=== PATIENT | male | born 1950 | race Caucasian/White ===

== ENCOUNTER 2016-06-27 12:15 | Emergency (ER) | payer OTHER ==
[~2016-06-27] VITALS: Ht 185.4 cm; Wt 102.5 kg
[~2016-06-27 12:15] MED LIST: ASPI81TA13; ATOR20TA50 PO; CARV3.1240; DILT180C53
[2016-06-27 13:11] LABS: Basophils # (auto) 0.1 uL; Basophils % (auto) 0.9 % (0.0-2.0); DEFINITIVE VIEW TRANSMISSION; Eosinophils # (auto) 0.1 uL; Eosinophils % (auto) 1.1 % (0.0-7.0); Hemoglobin 15.6 g/dL (13.5-17.5); Lymphocytes # (auto) 2.2 uL; Lymphocytes % (auto) 28.1 % (10.0-50.0); Mean Corpuscular Hemoglobin 26.6 pg (28.0-32.0); Mean Corpuscular Hgb Conc. 33.2 g/dL (32.0-36.0); Mean Corpuscular Volume 80.3 fL (80.0-100.0); Mean Platelet Volume 9.1 fL (7.4-10.4); Monocytes # (auto) 0.8 uL; Monocytes % (auto) 9.8 % (0.0-12.0); Neutrophils # (auto) 4.7 uL; Neutrophils % (auto) 60.1 % (37.0-80.0); Platelet Count (auto) 296 10^3/uL (140-450); Red Cell Distribution Width 13.6 % (11.6-16.0); White Blood Cell 7.8 10^3/uL (4.4-10.8)
[2016-06-27 13:35] LABS: Albumin 3.5 g/dL (3.4-5.0); Alkaline Phosphatase 123 U/L (45-117); Anion Gap 12 (5-15); Aspartate Aminotransferase 21 U/L (15-37); BUN/Creatinine Ratio 15.5; Bilirubin, Total 0.5 mg/dL (0.2-1.0); Blood Urea Nitrogen 16 mg/dL (7-18); Calcium 8.9 mg/dL (8.5-10.1); Carbon Dioxide 20 mmol/L (21-32); Chloride 113 mmol/L (98-107); GFR African American 94 mL/min; GFR Non-African American 78 mL/min; Glucose 125 mg/dL (74-106); Sodium 145 mmol/L (136-145); Total Protein 7.8 g/dL (6.4-8.2)
[2016-06-27 16:07] VITALS: BP 139/85
== END 2016-06-27 19:03 | disposition home or self-care (01) ==
LOC: ER 12:15
DX: R07.89 Other chest pain (principal); I10 Essential (primary) hypertension; K21.9 Gastro-esophageal reflux disease without esophagitis; E78.5 Hyperlipidemia, unspecified
CPT/HCPCS: 36415; 71020; 80053; 84484; 85025; 93005

== ENCOUNTER 2016-09-07 14:55 | Emergency (ER) | payer OTHER ==
[~2016-09-07] VITALS: Ht 185.4 cm; Wt 106.1 kg
[2016-09-07 16:00] LABS: Basophils # (auto) 0 uL; Basophils % (auto) 0.2 % (0.0-2.0); CONDITION Y; Eosinophils # (auto) 0.1 uL; Eosinophils % (auto) 0.9 % (0.0-7.0); Hematocrit 43.4 % (41.0-53.0); Hemoglobin 14.7 g/dL (13.5-17.5); Lymphocytes % (auto) 24.5 % (10.0-50.0); Mean Corpuscular Hemoglobin 27.9 pg (28.0-32.0); Mean Corpuscular Hgb Conc. 33.9 g/dL (32.0-36.0); Mean Corpuscular Volume 82.4 fL (80.0-100.0); Mean Platelet Volume 9.9 fL (7.4-10.4); Monocytes # (auto) 0.4 uL; Monocytes % (auto) 5.4 % (0.0-12.0); Neutrophils # (auto) 5.7 uL; Platelet Count (auto) 245 10^3/uL (140-450); Red Cell Distribution Width 14.2 % (11.6-16.0); White Blood Cell 8.3 10^3/uL (4.4-10.8)
[2016-09-07 16:11] LABS: Albumin 3.5 g/dL (3.4-5.0); BUN/Creatinine Ratio 12.1; Bilirubin, Total 0.5 mg/dL (0.2-1.0); Calcium 8.7 mg/dL (8.5-10.1); Magnesium 2.2 mg/dL (1.6-2.6); Potassium 3.9 mmol/L (3.5-5.1)
[2016-09-08 03:04] VITALS: BP 154/78
[2016-09-08 04:26] LABS: Urine Bilirubin Negative (Negative); Urine Blood Negative /uL (Negative); Urine Color Yellow (Yellow); Urine Glucose Normal (Normal); Urine Ketone TRACE (Negative); Urine Mucus FEW (None Seen); Urine Nitrite Negative (Negative); Urine RBC <1 /hpf (0 - 3); Urine Squamous Epithelial Cell FEW /hpf (<5); Urine Urobilinogen Normal (Negative)
== END 2016-09-08 06:12 | disposition home or self-care (01) ==
LOC: ER 14:55
DX: N20.0 Calculus of kidney (principal); N28.1 Cyst of kidney, acquired; E78.5 Hyperlipidemia, unspecified; I10 Essential (primary) hypertension; K21.9 Gastro-esophageal reflux disease without esophagitis; Z90.89 Acquired absence of other organs
CPT/HCPCS: 36415; 74176; 80053; 80307; 81001; 83690; 83735; 84484; 85025; 93005

== ENCOUNTER 2016-12-23 11:58 | Emergency (ER) | payer OTHER ==
[~2016-12-23] VITALS: Ht 182.9 cm; Wt 98.4 kg
[2016-12-23 13:13] LABS: Basophils # (auto) 0 uL; Basophils % (auto) 0.5 % (0.0-2.0); Eosinophils # (auto) 0.1 uL; Eosinophils % (auto) 0.8 % (0.0-7.0); Hematocrit 44.2 % (41.0-53.0); Lymphocytes # (auto) 1.8 uL; Lymphocytes % (auto) 24.1 % (10.0-50.0); Mean Corpuscular Hgb Conc. 33.9 g/dL (32.0-36.0); Mean Corpuscular Volume 82.8 fL (80.0-100.0); Mean Platelet Volume 8.8 fL (6.9-10.8); Monocytes # (auto) 0.7 uL; Monocytes % (auto) 9.2 % (0.0-12.0); Neutrophils # (auto) 4.8 uL; Neutrophils % (auto) 65.4 % (37.0-80.0); Nucleated Red Blood Cells % 0.1 %; Platelet Count (auto) 223 10^3/uL (140-450); Red Cell Distribution Width 13.5 % (11.8-14.3); White Blood Cell 7.3 10^3/uL (4.4-10.8)
[2016-12-23 13:34] LABS: Albumin 3.6 g/dL (3.4-5.0); Anion Gap 7 (5-15); Blood Urea Nitrogen 15 mg/dL (7-18); Calcium 8.9 mg/dL (8.5-10.1); Carbon Dioxide 25 mmol/L (21-32); Chloride 112 mmol/L (98-107); Glucose 107 mg/dL (74-106); Magnesium 2.1 mg/dL (1.6-2.6); Potassium 4.4 mmol/L (3.5-5.1); Sodium 144 mmol/L (136-145)
[2016-12-23 13:37] LABS: Aspartate Aminotransferase 14 U/L (15-37); BUN/Creatinine Ratio 13.9; GFR African American 89 mL/min; GFR Non-African American 73 mL/min
[2016-12-23 13:42] LABS: Alkaline Phosphatase 108 U/L (45-117); Bilirubin, Total 0.5 mg/dL (0.2-1.0); Total Protein 7.4 g/dL (6.4-8.2)
[2016-12-23] MEDS ORDERED: SODIUM CHLORIDE 0.9% 1,000 ML IV ONE (18:45)
[2016-12-23] MEDS ORDERED: ONDANSETRON HCL 4 MG/2 ML VIAL IV ONE (18:45)
[2016-12-23 19:06] LABS: Amylase 50 U/L (25-115)
[2016-12-23 20:26] VITALS: BP 137/89
== END 2016-12-23 21:26 | disposition home or self-care (01) ==
LOC: ER 11:58
DX: K59.00 Constipation, unspecified (principal); R10.9 Unspecified abdominal pain; F12.10 Cannabis abuse, uncomplicated; R11.2 Nausea with vomiting, unspecified; I48.91 Unspecified atrial fibrillation; K21.9 Gastro-esophageal reflux disease without esophagitis; E78.5 Hyperlipidemia, unspecified; I10 Essential (primary) hypertension; Z87.442 Personal history of urinary calculi
CPT/HCPCS: 36415; 74176; 80053; 80307; 82150; 83690; 83735; 84484; 85025; 93005; 96360; 99285; J7030

== ENCOUNTER 2017-03-30 02:21 | Emergency (ER) | payer OTHER ==
[~2017-03-30] VITALS: Ht 177.8 cm; Wt 108.9 kg
[~2017-03-30 02:21] MED LIST changes: -CARV3.1240; +CARV3.1240 PO
[2017-03-30] MEDS ORDERED: MORPHINE SULFATE 10 MG/ML INJ 1ML SDV IV ONE ×2 (02:30)
[2017-03-30] MEDS ORDERED: ONDANSETRON HCL 4 MG/2 ML VIAL IV ONE ×2 (02:30)
[2017-03-30 02:48] LABS: Basophils # (auto) 0 uL; Eosinophils # (auto) 0 uL; Hemoglobin 12.1 g/dL (13.5-17.5); Lymphocytes # (auto) 0.9 uL; Monocytes # (auto) 0.1 uL; Neutrophils % (auto) 75.9 % (37.0-80.0)
[2017-03-30 02:50] LABS: Basophils % (auto) 0.4 % (0.0-2.0); Hematocrit 36.4 % (41.0-53.0); Lymphocytes % (auto) 21.9 % (10.0-50.0); Mean Corpuscular Hemoglobin 25.5 pg (28.0-32.0); Mean Corpuscular Hgb Conc. 33.3 g/dL (32.0-36.0); Mean Corpuscular Volume 76.6 fL (80.0-100.0); Monocytes % (auto) 1.8 % (0.0-12.0); Nucleated Red Blood Cells % 0.1 %; Platelet Count (auto) 262 10^3/uL (140-450); Red Blood Cells 4.76 10^6/uL (4.5-5.90); Red Cell Distribution Width 13.7 % (11.8-14.3)
[2017-03-30] MEDS ORDERED: LABETALOL HCL 200 MG TAB PO ONE (03:00)
[2017-03-30 03:05] LABS: Albumin 3.4 g/dL (3.4-5.0); BUN/Creatinine Ratio 12.1; Potassium 3.7 mmol/L (3.5-5.1)
[2017-03-30 03:08] LABS: Bilirubin, Total 0.2 mg/dL (0.2-1.0); Total Protein 7.7 g/dL (6.4-8.2)
[2017-03-30] MEDS ORDERED: SODIUM CHLORIDE 0.9% 1,000 ML IV ONE (03:45)
[2017-03-30 04:01] VITALS: BP 100/64
== END 2017-03-30 05:07 | disposition home or self-care (01) ==
LOC: ER 02:25
DX: I48.91 Unspecified atrial fibrillation (principal); I10 Essential (primary) hypertension; I70.90 Unspecified atherosclerosis; E78.5 Hyperlipidemia, unspecified; K21.9 Gastro-esophageal reflux disease without esophagitis; F12.10 Cannabis abuse, uncomplicated; Z90.89 Acquired absence of other organs; Z79.82 Long term (current) use of aspirin; Z79.899 Other long term (current) drug therapy
CPT/HCPCS: 36415; 71045; 80053; 83735; 84443; 84484; 85025; 92960; 93005; 96361; 96374; 96375; 99285; J2270; J7030; J2405

== ENCOUNTER 2018-10-11 16:18 | Emergency (ER) | payer MEDICARE, OTHER ==
[~2018-10-11] VITALS: Ht 185.4 cm; Wt 102.1 kg
[~2018-10-11 16:18] MED LIST changes: +ASPI1TAB19; -ASPI81TA13
[2018-10-11] MEDS ORDERED: DILTIAZEM HCL 25 MG/5 ML VIAL IV ONE ×2 (16:38→16:45)
[2018-10-11] MEDS ORDERED: SODIUM CHLORIDE 0.9% 500 ML IV ONE (16:45)
[2018-10-11] MEDS ORDERED: SODIUM CHLORIDE 0.9% 1,000 ML IV ONE (16:52)
[2018-10-11] MEDS ORDERED: ASPirin 81 mg TAB PO ONE (17:00)
[2018-10-11 17:09] LABS: Basophils # (auto) 0.1 uL; Eosinophils # (auto) 0.1 uL; Hemoglobin 13.8 g/dL (13.5-17.5); Neutrophils # (auto) 4.1 uL; White Blood Cell 8.3 10^3/uL (4.4-10.8)
[2018-10-11 17:11] LABS: Basophils % (auto) 0.6 % (0.0-2.0); Eosinophils % (auto) 1.6 % (0.0-7.0); Hematocrit 41.6 % (41.0-53.0); Lymphocytes # (auto) 2.8 uL; Lymphocytes % (auto) 34.2 % (10.0-50.0); Mean Corpuscular Hemoglobin 24.3 pg (28.0-32.0); Mean Corpuscular Hgb Conc. 33.2 g/dL (32.0-36.0); Mean Corpuscular Volume 73.3 fL (80.0-100.0); Monocytes # (auto) 1.1 uL; Monocytes % (auto) 13.7 % (0.0-12.0); Neutrophils % (auto) 49.9 % (37.0-80.0); Nucleated Red Blood Cells % 0.3 %; Platelet Count (auto) 194 10^3/uL (140-450); Red Blood Cells 5.68 10^6/uL (4.5-5.90); Red Cell Distribution Width 17.4 % (11.8-14.3)
[2018-10-11 17:31] LABS: Alanine Aminotransferase 30 U/L (16-61); Albumin 3.5 g/dL (3.4-5.0); Anion Gap 8 (5-15); Aspartate Aminotransferase 13 U/L (15-37); Blood Urea Nitrogen 19 mg/dL (7-18); Calcium 8.8 mg/dL (8.5-10.1); Carbon Dioxide 23 mmol/L (21-32); Chloride 111 mmol/L (98-107); Glucose 148 mg/dL (74-106); Magnesium 2.2 mg/dL (1.6-2.6); Potassium 3.8 mmol/L (3.5-5.1); Sodium 142 mmol/L (136-145)
[2018-10-11 17:36] LABS: Alkaline Phosphatase 136 U/L (45-117); Bilirubin, Total 0.3 mg/dL (0.2-1.0); GFR African American 84 mL/min; GFR Non-African American 70 mL/min; INR 0.94 (0.9-1.15); Total Protein 7.3 g/dL (6.4-8.2)
[2018-10-11 18:14] VITALS: BP 116/81
== END 2018-10-11 18:18 | disposition home or self-care (01) ==
LOC: ER 16:18
DX: I48.91 Unspecified atrial fibrillation (principal); K21.9 Gastro-esophageal reflux disease without esophagitis; I10 Essential (primary) hypertension; F41.9 Anxiety disorder, unspecified; R73.9 Hyperglycemia, unspecified; J44.9 Chronic obstructive pulmonary disease, unspecified; E78.5 Hyperlipidemia, unspecified; F12.90 Cannabis use, unspecified, uncomplicated; F17.210 Nicotine dependence, cigarettes, uncomplicated; Z79.82 Long term (current) use of aspirin; Z79.899 Other long term (current) drug therapy
CPT/HCPCS: 36415; 71046; 80053; 83735; 84443; 84484; 85025; 85610; 85730; 93005; 94761; 96374; 99284; J7040

== ENCOUNTER 2018-12-22 11:32 | Inpatient (IN) | payer OTHER ==
[~2018-12-22] VITALS: Ht 185.4 cm; Wt 101.2 kg
[~2018-12-22 11:32] MED LIST changes: -ASPI1TAB19; +ASPI1TAB19 PO
[2018-12-22] MEDS ORDERED: AMIODARONE HCL 150 MG in D5W 5% 100 ML IV ONE ×2 (12:30→17:45)
[2018-12-22 13:03] LABS: Lymphocytes # (auto) 2.2 uL; Monocytes # (auto) 0.8 uL; Neutrophils # (auto) 1.9 uL; Nucleated Red Blood Cells % 0.1 %; White Blood Cell 5.1 10^3/uL (4.4-10.8)
[2018-12-22 13:05] LABS: Basophils # (auto) 0 uL; Basophils % (auto) 0.8 % (0.0-2.0); Eosinophils # (auto) 0.2 uL; Eosinophils % (auto) 3.1 % (0.0-7.0); Hematocrit 35.8 % (41.0-53.0); Hemoglobin 11.8 g/dL (13.5-17.5); Lymphocytes % (auto) 42.5 % (10.0-50.0); Mean Corpuscular Hemoglobin 24.4 pg (28.0-32.0); Mean Corpuscular Volume 73.9 fL (80.0-100.0); Monocytes % (auto) 15.9 % (0.0-12.0); Neutrophils % (auto) 37.7 % (37.0-80.0); Platelet Count (auto) 223 10^3/uL (140-450); Red Blood Cells 4.85 10^6/uL (4.5-5.90); Red Cell Distribution Width 15.3 % (11.8-14.3)
[2018-12-22 13:15] LABS: Alanine Aminotransferase 19 U/L (16-61); Anion Gap 6 (5-15); Aspartate Aminotransferase 14 U/L (15-37); BUN/Creatinine Ratio 14.9; Blood Urea Nitrogen 15 mg/dL (7-18); Calcium 7.6 mg/dL (8.5-10.1); Carbon Dioxide 24 mmol/L (21-32); Chloride 113 mmol/L (98-107); GFR African American 95 mL/min; GFR Non-African American 79 mL/min; Glucose 119 mg/dL (74-106); Potassium 3.8 mmol/L (3.5-5.1); Sodium 143 mmol/L (136-145)
[2018-12-22 13:20] LABS: Alkaline Phosphatase 110 U/L (45-117); Bilirubin, Total 0.4 mg/dL (0.2-1.0); Total Protein 6.2 g/dL (6.4-8.2)
[2018-12-22] MEDS ORDERED: AMIODARONE HCL 900 MG in DEXTROSE 500 ML IV SCH ×2 (13:30→19:30)
[2018-12-22] MEDS ORDERED: MORPHINE SULF INJ 2 MG/ML SYRINGE 1ML IV PRN (14:00)
[2018-12-22] MEDS ORDERED: HYDROcodone-ACET 5/325MG TAB PO PRN (14:00)
[2018-12-22] MEDS ORDERED: ACETAMINOPHEN 325 MG TAB PO PRN (14:00)
[2018-12-22] MEDS ORDERED: PROMETHAZINE HCL 25 MG/ML 1ML IV PRN (14:00)
[2018-12-22] MEDS ORDERED: hydrALAZINE HCL 20 MG/ML VL IV PRN (14:00)
[2018-12-22] MEDS ORDERED: NITROGLYCERIN 0.4 MG SL TAB SL PRN (14:00)
[2018-12-22] MEDS ORDERED: ENOXAPARIN SOD 100 MG/1 ML SYRINGE SC ONE (14:00)
[2018-12-22] MEDS ORDERED: LEVALBUTEROL HCL 1.25 MG/3 ML NEB NEB PRN (14:15)
--- NOTE | 2018-12-22 15:25 | NUR ---
RECEIVED PATIENT FROM THE ER WITH A COMPLAINT OF PALPITATIONS, DIAGNOSIS OF AFIB WITH RVR, A/O TIMES 4, WALKED FROM THE GURNEY TO THE BED, AMIODARONE DRIP INFUSING INTO THE RAC AT 33.33ML/HR BY THE IV PUMP, STATES HE CAN USE THE URINAL, DENIES PAIN, O2 BY R/A VS [id number] 119/89 99%
[2018-12-22 16:00] VITALS: BP 119/88
--- NOTE | 2018-12-22 16:30 | NUR ---
SITTING UP IN BED ASKING WHEN HE IS GOING TO GET SOMETHING TO EAT, EXPRESS TO HIM THAT I HAVE TO GET AN ORDER FROM THE DOCTOR
--- NOTE | 2018-12-22 17:00 | NUR ---
PATIENT HEART RHYTHM GOING FROM A-FIB TO S-TACH IN THE 130'S
--- NOTE | 2018-12-22 17:23 | NUR ---
SOLITARIO LEATHER BELT LOOP CUTTER IN TO SEE THE PATIENT
--- NOTE | 2018-12-22 17:24 | NUR ---
DR SHEN AND INTO SEE THE PATIENT
[2018-12-22] MEDS ORDERED: DIGOXIN (250MCG/ML) 2 ML AMPULE IV ONE ×3 (17:30→22:15)
[2018-12-22] MEDS ORDERED: ALPRAZolam 0.25 MG TAB PO ONE ×2 (17:45→21:45)
--- NOTE | 2018-12-22 18:42 | NUR ---
AMIODARONE 150MG BOLUS GIVEN IV ORDERED FOR HEART RATE
--- NOTE | 2018-12-22 18:42 | NUR ---
BOLUS OF DIGOXIN GIVEN IV FOR HEART RATE 130 Addendum: 12/22/18 at 2004 by Deidre Ross RN GIVEN AT 1800
--- NOTE | 2018-12-22 18:45 | NUR ---
PATIENT ATE HIS DINNER AND TOLERATED, AT THE BEDSIDE, O2 BY R/A ,DENIES PAIN , STATES HE HOPES HIS HEART RATE DOESN'T DROP SUDDENLY FROM ALL OF THE MEDICATIONS I GAVE HIM, EXPRESS TO HIM THAT I GAVE THEM ABOUT 40 MINUTES APART TO KEEP THAT FROM HAPPENING, WILL CONTINUE TO MONITOR AND GIVE REPORT TO THE NEXT SHIFT
--- NOTE | 2018-12-22 19:15 | NUR ---
OPENING NOTES ASSUMED CARE, A/O X4 WITH NO SIGNS OF DISTRESS, STILL ON AMIODARONE DRIP @ 1 MG/HR, INFUSING IN THE RIGHT AC, STILL AFIB 130'S, BIPEDAL EDEMA NOTED, PULSES ARE PALPABLE. BED IN LOWEST POSITION WITH SIDE RAILS UP, BED ALARM ON AND CALL LIGHT WITHIN REACH. ENCOURAGED TO CALL IF HE NEEDS SOMETHING. WILL CONTINUE CARE.
[2018-12-22 20:00] VITALS: BP 92/59
[2018-12-22] MEDS ORDERED: VITA400T4 PO (20:52)
[2018-12-22] MEDS ORDERED: FAMO-12 PO (20:52)
[2018-12-22] MEDS ORDERED: BUSP10TA31 PO (20:52)
[2018-12-22] MEDS ORDERED: DOCU100T15 PO (20:52)
[2018-12-22] MEDS ORDERED: OMEG100078 PO (20:52)
[2018-12-22] MEDS ORDERED: PANT40TA2 PO (20:52)
[2018-12-22] MEDS ORDERED: SERT-274 PO (20:52)
[2018-12-22] MEDS ORDERED: FINA5TAB4 PO (20:52)
[2018-12-22] MEDS ORDERED: TAMS1CAP25 PO (20:52)
--- NOTE | 2018-12-22 21:30 | NUR ---
PAGED DR. SHEN RE: HR STILL ON 130'S AND TO VERIFY AN ORDER FOR AMIODARONE DRIP. AWAITING CALL BACK.
--- NOTE | 2018-12-22 21:40 | NUR ---
DR. SHEN CALLED BACK, UPDATED ON PT'S STATUS, HR 130'S STILL, NEW ORDERS RECEIVED TO GIVE XANAX 0.25 MG PO NOW, DIGOXIN 250 MCG IV ONCE AND KEEP THE AMIODARONE DRIP @ 1 MG/MIN UNTIL TOMORROW. WILL CARRY OUT ORDERS AFTER HAD BEEN READ BACK AND VERIFIED.
[2018-12-22] MEDS: AMIODARONE HCL 900 MG in DEXTROSE 500 ML IV SCH (21:45)
[2018-12-22] MEDS: ENOXAPARIN SOD 100 MG/1 ML SYRINGE SC SCH (22:28)
--- NOTE | 2018-12-22 22:30 | NUR ---
DIGOXIN 250 MCG IV GIVEN ONCE, XANAX 0.25 MG PO GIVEN , AMIODARONE DRIP STILL @ 1 MG/MIN UNTIL FURTHER ORDERS.
[2018-12-23] VITALS: BP 115/77
[2018-12-23 04:00] VITALS: BP 110/79
[2018-12-23] MEDS: AMIODARONE HCL 900 MG in DEXTROSE 500 ML IV SCH (06:00)
--- NOTE | 2018-12-23 06:00 | NUR ---
CONVERTED TO NSR 60'S TO 70'S. STRIP ATTACHED TO CHART.
[2018-12-23 06:10] LABS: Eosinophils # (auto) 0.1 uL; Lymphocytes # (auto) 2.4 uL; Neutrophils # (auto) 3.2 uL
[2018-12-23 06:14] LABS: Basophils # (auto) 0.1 uL; Basophils % (auto) 0.7 % (0.0-2.0); Eosinophils % (auto) 2.2 % (0.0-7.0); Hematocrit 36.4 % (41.0-53.0); Hemoglobin 12.3 g/dL (13.5-17.5); Lymphocytes % (auto) 36.2 % (10.0-50.0); Mean Corpuscular Hemoglobin 24.8 pg (28.0-32.0); Mean Corpuscular Hgb Conc. 33.7 g/dL (32.0-36.0); Mean Corpuscular Volume 73.7 fL (80.0-100.0); Monocytes # (auto) 0.9 uL; Monocytes % (auto) 13.4 % (0.0-12.0); Neutrophils % (auto) 47.5 % (37.0-80.0); Platelet Count (auto) 209 10^3/uL (140-450); Red Blood Cells 4.94 10^6/uL (4.5-5.90); Red Cell Distribution Width 15.2 % (11.8-14.3); White Blood Cell 6.7 10^3/uL (4.4-10.8)
[2018-12-23 06:45] LABS: BUN/Creatinine Ratio 10.6; Calcium 8.2 mg/dL (8.5-10.1); Potassium 3.7 mmol/L (3.5-5.1)
[2018-12-23 08:00] VITALS: BP 111/73
--- NOTE | 2018-12-23 08:00 | NUR ---
SBAR REPORT RECEIVED FROM AURELIO DWYER RN. PERFORMED AM ASSESSMENT AT THIS TIME WITH 0 COMPLICATIONS NOTED, VSS. PT REMAINS IN SR AT THIS TIME WITH 0 COMPLAINTS. VSS. SEE FLOWSHEET FOR MORE DETAILS.
[2018-12-23] MEDS ORDERED: PANTOPRAZOLE 40 MG TAB PO SCH (10:00)
[2018-12-23] MEDS: ENOXAPARIN SOD 100 MG/1 ML SYRINGE SC SCH (10:05)
--- NOTE | 2018-12-23 11:30 | NUR ---
MD SAMUELS AT BEDSIDE. UPDATED MD WITH PT OVERALL STATUS INCLUDING PT CONVERTING TO SR AT 6AM. NEW ORDERS GIVEN AND IMPLEMENTED, VSS.
[2018-12-23 12:00] VITALS: BP 116/80
[2018-12-23] MEDS ORDERED: AMIODARONE HCL 200 MG TAB PO ONE (12:00)
[2018-12-23] MEDS ORDERED: AMIO200T33 PO (12:11)
[2018-12-23] MEDS ORDERED: PANT40T (12:13)
[2018-12-23] MEDS ORDERED: DILT180C49 (12:13)
[2018-12-23] MEDS ORDERED: CARV6.2551 (12:13)
--- NOTE | 2018-12-23 13:00 | NUR ---
MD SHEN ON PHONE. UPDATED MD WITH PT OVERALL STATUS. NEW ORDERS GIVEN AND IMPLEMENTED. PER MD, HE WANTS PT TO CONTINUE TAKING HIS HOME MEDS 0F CARVEDILOL AND TO FOLLOW UP WITH MD SHEN IN 1-2 WEEKS AFTER PT IS DISCHARGED.
[2018-12-23 13:54] VITALS: BP 116/80
--- NOTE | 2018-12-23 14:40 | NUR ---
NO ARRHYTHMIA'S NOTED AFTER AMIODARONE GTT STOPPED (ONE DOSE OF AMIODARONE P.O. GIVEN PER MD ORDERS).
--- NOTE | 2018-12-23 14:45 | NUR ---
DISCHARGE INSTRUCTIONS PROVIDED TO PT AND . REMINDED PT NOT TO TAKE DIGOXIN AND TO RESUME ALL HOME MEDICATIONS ORDERED (ALONG WITH TAKING NEW PRESCRIPTION OF AMIODARONE). PT AND FAMILY BOTH VERBALIZED UNDERSTANDING. PT STATES HE WOULD LIKE TO COORDINATE WITH TO SCHEDULE APPOINTMENTS IN 1-2 WEEKS WITH PRIMARY AND MD SHEN. PRESCRIPTION GIVEN TO PT WITH 0 ISSUES. PT AND FAMILY BOTH STATED THEY UNDERSTOOD DISCHARGE INSTRUCTIONS. PT TAKEN TO VEHICLE VIA WHEELCHAIR WITH 0 COMPLICATIONS NOTED ( TOOK PT HOME), VSS.
--- NOTE | 2018-12-23 16:18 | NUR ---
Assessment Prior to d/c, SW did an initial assessment. Pt is a 68 yr old male alert and oriented. Pt lives with who helps to cook and clean. Pt is ambulatory, and independent with ADL's. Pt currently does not use any DME other than a heart monitor in home. Pt admitted with atrial fibrillation but was able to stabilize. Pt was aware of diagnosis and is feeling much better. Pt financially stable. Pt has no AD on file. No needs or concerns expressed at this time.
[2018-12-23] MEDS ORDERED: AMIODARONE HCL 200 MG TAB PO SCH (22:00)
== END 2018-12-23 14:40 | disposition home or self-care (01) | DRG 310 ==
LOC: ER 11:37 → TELE 11:38 → DOU IN ICU 16:07
PROVIDERS: ADMIT Internal Medicine; ATTEND Internal Medicine
DX: I48.0 Paroxysmal atrial fibrillation (principal); E78.5 Hyperlipidemia, unspecified; F32.9 Major depressive disorder, single episode, unspecified; I10 Essential (primary) hypertension; F41.9 Anxiety disorder, unspecified; J44.9 Chronic obstructive pulmonary disease, unspecified; K21.9 Gastro-esophageal reflux disease without esophagitis; N40.0 Benign prostatic hyperplasia without lower urinary tract symptoms; Z79.01 Long term (current) use of anticoagulants; Z79.82 Long term (current) use of aspirin; Z79.899 Other long term (current) drug therapy; Z87.891 Personal history of nicotine dependence; Z90.89 Acquired absence of other organs; Z72.89 Other problems related to lifestyle; Z80.0 Family history of malignant neoplasm of digestive organs
CPT/HCPCS: 36415; 71045; 80048; 80053; 83735; 84484; 85025; 93005; 96365; 96372; 96375; G0378; J7060

== ENCOUNTER 2018-12-26 09:44 | Emergency (ER) | payer OTHER ==
[~2018-12-26] VITALS: Ht 185.4 cm; Wt 101.6 kg
[~2018-12-26 09:44] MED LIST changes: +AMIO200T33 PO; +BUSP10TA31 PO; -CARV3.1240 PO; +CARV6.2551; -DILT180C53; +DOCU100T15 PO; +FAMO-12 PO; +FINA5TAB4 PO; +OMEG100078 PO; +PANT40T; +PANT40TA2 PO; +SERT-274 PO; +TAMS1CAP25 PO; +VITA400T4 PO
[2018-12-26 10:20] LABS: Basophils # (auto) 0 uL; Hemoglobin 12.4 g/dL (13.5-17.5); Mean Corpuscular Hemoglobin 24.5 pg (28.0-32.0); Mean Corpuscular Volume 74.4 fL (80.0-100.0); Monocytes # (auto) 0.7 uL
[2018-12-26 10:21] LABS: Basophils % (auto) 0.5 % (0.0-2.0); Eosinophils # (auto) 0.1 uL; Eosinophils % (auto) 0.8 % (0.0-7.0); Hematocrit 37.8 % (41.0-53.0); Lymphocytes # (auto) 1.5 uL; Lymphocytes % (auto) 19.7 % (10.0-50.0); Mean Corpuscular Hgb Conc. 32.9 g/dL (32.0-36.0); Monocytes % (auto) 8.9 % (0.0-12.0); Neutrophils # (auto) 5.5 uL; Neutrophils % (auto) 70.1 % (37.0-80.0); Platelet Count (auto) 247 10^3/uL (140-450); Red Blood Cells 5.08 10^6/uL (4.5-5.90); Red Cell Distribution Width 14.9 % (11.8-14.3); White Blood Cell 7.9 10^3/uL (4.4-10.8)
[2018-12-26 10:34] LABS: INR 0.93 (0.9-1.15); Partial Thromboplastin Time 25.1 sec (23.64-32.05)
[2018-12-26 11:10] LABS: Alanine Aminotransferase 64 U/L (16-61); Alkaline Phosphatase 112 U/L (45-117); Anion Gap 8 (5-15); Aspartate Aminotransferase 40 U/L (15-37); BUN/Creatinine Ratio 16.1; Bilirubin, Total 0.3 mg/dL (0.2-1.0); Blood Urea Nitrogen 15 mg/dL (7-18); Calcium 8.5 mg/dL (8.5-10.1); Carbon Dioxide 21 mmol/L (21-32); Chloride 112 mmol/L (98-107); GFR African American 105 mL/min; GFR Non-African American 86 mL/min; Glucose 132 mg/dL (74-106); Potassium 4.3 mmol/L (3.5-5.1); Sodium 141 mmol/L (136-145)
[2018-12-26 11:11] LABS: Albumin 3.4 g/dL (3.4-5.0); Total Protein 7.2 g/dL (6.4-8.2)
[2018-12-26] MEDS ORDERED: LORazepam 0.5 MG TAB PO ONE (11:45)
[2018-12-26 13:45] VITALS: BP 124/62
== END 2018-12-26 13:52 | disposition home or self-care (01) ==
LOC: ER 09:44
DX: F41.9 Anxiety disorder, unspecified (principal); I48.91 Unspecified atrial fibrillation; J44.9 Chronic obstructive pulmonary disease, unspecified; K21.9 Gastro-esophageal reflux disease without esophagitis; E78.5 Hyperlipidemia, unspecified; I10 Essential (primary) hypertension; Z79.899 Other long term (current) drug therapy
CPT/HCPCS: 36415; 71046; 80053; 83880; 84484; 85025; 85610; 85730

== ENCOUNTER 2018-12-27 19:03 | Emergency (ER) | payer OTHER ==
[~2018-12-27] VITALS: Ht 185.4 cm; Wt 102.7 kg
[2018-12-27 23:19] LABS: Basophils # (auto) 0 uL; Hemoglobin 11.8 g/dL (13.5-17.5); Monocytes # (auto) 0.7 uL; Nucleated Red Blood Cells % 0.1 %
[2018-12-27 23:23] LABS: Basophils % (auto) 0.5 % (0.0-2.0); Eosinophils # (auto) 0.1 uL; Eosinophils % (auto) 1.9 % (0.0-7.0); Hematocrit 36.5 % (41.0-53.0); Lymphocytes # (auto) 2.4 uL; Lymphocytes % (auto) 34.9 % (10.0-50.0); Mean Corpuscular Hemoglobin 24.3 pg (28.0-32.0); Mean Corpuscular Hgb Conc. 32.2 g/dL (32.0-36.0); Mean Corpuscular Volume 75.6 fL (80.0-100.0); Neutrophils # (auto) 3.5 uL; Neutrophils % (auto) 51.7 % (37.0-80.0); Platelet Count (auto) 234 10^3/uL (140-450); Red Blood Cells 4.83 10^6/uL (4.5-5.90); Red Cell Distribution Width 15.5 % (11.8-14.3); White Blood Cell 6.8 10^3/uL (4.4-10.8)
[2018-12-27 23:26] LABS: INR 0.95 (0.9-1.15)
[2018-12-27 23:35] LABS: Potassium 4.2 mmol/L (3.5-5.1)
[2018-12-27 23:42] LABS: Albumin 3.4 g/dL (3.4-5.0); BUN/Creatinine Ratio 15.1; Bilirubin, Total 0.3 mg/dL (0.2-1.0); Calcium 8.5 mg/dL (8.5-10.1); Total Protein 7.3 g/dL (6.4-8.2)
[2018-12-28 06:03] VITALS: BP 132/83
== END 2018-12-28 06:15 | disposition home or self-care (01) ==
LOC: ER 19:08
DX: I82.611 Acute embolism and thrombosis of superficial veins of right upper extremity (principal); J44.9 Chronic obstructive pulmonary disease, unspecified; E78.5 Hyperlipidemia, unspecified; I10 Essential (primary) hypertension; I48.91 Unspecified atrial fibrillation; Z79.899 Other long term (current) drug therapy; Z90.89 Acquired absence of other organs; Z87.891 Personal history of nicotine dependence
CPT/HCPCS: 36415; 80053; 85025; 85610; 85730; 93971; 94761

== ENCOUNTER 2019-10-25 10:43 | Emergency (ER) | payer OTHER ==
[~2019-10-25] VITALS: Ht 185.4 cm; Wt 102.1 kg
[2019-10-25 11:21] LABS: Basophils # (auto) 0 10 ^3/uL (0-0.2); Monocytes # (auto) 0.6 10 ^3/uL (0-1.3); Neutrophils # (auto) 2.9 10 ^3/uL (1.6-8.6)
[2019-10-25 11:23] LABS: Basophils % (auto) 0.8 % (0.0-2.0); Eosinophils # (auto) 0 10 ^3/uL (0-0.8); Eosinophils % (auto) 0.8 % (0.0-7.0); Hematocrit 31.8 % (41.0-53.0); Hemoglobin 10.1 g/dL (13.5-17.5); Lymphocytes # (auto) 1.3 10 ^3/uL (0.4-5.4); Lymphocytes % (auto) 26.4 % (10.0-50.0); Mean Corpuscular Hemoglobin 21.4 pg (28.0-32.0); Mean Corpuscular Hgb Conc. 31.6 g/dL (32.0-36.0); Mean Corpuscular Volume 67.6 fL (80.0-100.0); Monocytes % (auto) 11.6 % (0.0-12.0); Neutrophils % (auto) 60.4 % (37.0-80.0); Platelet Count (auto) 303 10^3/uL (140-450); Red Blood Cells 4.71 10^6/uL (4.5-5.90); Red Cell Distribution Width 16.1 % (11.8-14.3); White Blood Cell 4.9 10^3/uL (4.4-10.8)
[2019-10-25 11:39] LABS: Albumin 3.4 g/dL (3.4-5.0); Anion Gap 6 (5-15); Blood Urea Nitrogen 12 mg/dL (7-18); Calcium 8.6 mg/dL (8.5-10.1); Carbon Dioxide 22 mmol/L (21-32); Chloride 113 mmol/L (98-107); Glucose 107 mg/dL (74-106); Potassium 4.1 mmol/L (3.5-5.1); Sodium 141 mmol/L (136-145)
[2019-10-25 11:46] LABS: Alanine Aminotransferase 35 U/L (16-61); Alkaline Phosphatase 118 U/L (45-117); Aspartate Aminotransferase 20 U/L (15-37); BUN/Creatinine Ratio 10.3; Bilirubin, Total 0.4 mg/dL (0.2-1.0); GFR African American 81 mL/min; GFR Non-African American 67 mL/min
[2019-10-25 17:42] VITALS: BP 142/84
== END 2019-10-25 17:44 | disposition home or self-care (01) ==
LOC: ER 10:43
DX: R42 Dizziness and giddiness (principal); D64.9 Anemia, unspecified; K21.9 Gastro-esophageal reflux disease without esophagitis; I10 Essential (primary) hypertension; J44.9 Chronic obstructive pulmonary disease, unspecified; F41.9 Anxiety disorder, unspecified
CPT/HCPCS: 36415; 80053; 84484; 85025; 93005